=== PATIENT | male | born 1980 | race Caucasian/White ===

== ENCOUNTER 2017-05-10 16:47 | Emergency (ER) | payer OTHER ==
[~2017-05-10] VITALS: Ht 172.7 cm; Wt 88.6 kg
[2017-05-10] MEDS ORDERED: NORCO, ANEXSIA 5/325MG TABLET (HYDROcodone/ACETAMINOPHEN) PO ONE (17:15)
[2017-05-10] MEDS ORDERED: LIDOCAINE 1% MDV 20ML VIAL SC ONE (17:15)
[2017-05-10] MEDS ORDERED: LIDOCAINE 1% SDV INJ 30 ML VIAL SC SCH (17:15)
[2017-05-10] MEDS ORDERED: LIDOCAINE 1% MDV 20ML VIAL As Ordered ONE (17:17)
[2017-05-10] MEDS ORDERED: NEOSPORIN OINT 0.9 GM PKT (FLOOR STOCK) As Ordered ONE (17:22)
[2017-05-10] MEDS ORDERED: AUGM875T28 PO (17:51)
[2017-05-10 17:58] VITALS: BP 145/90
[2017-05-10] MEDS ORDERED: AUGMENTIN 875 MG TAB PO ONE (18:00)
--- NOTE | 2017-05-11 02:23 | REP ---
Clinical: Laceration. Foreign body. Technique: AP and lateral views of the left knee. Findings: No acute fracture dislocation. No obvious subcutaneous emphysema or radiodense foreign body appreciated. Impression: No obvious radiodense foreign body. Signed by Jason Gordon MD 05/11/2017 02:14 A
== END 2017-05-10 18:00 | disposition home or self-care (01) ==
LOC: M ED 16:47
DX: S81.012A Laceration without foreign body, left knee, initial encounter (principal); W29.3XXA Contact with powered garden and outdoor hand tools and machinery, initial encounter; Y92.410 Unspecified street and highway as the place of occurrence of the external cause; Y93.H9 Activity, other involving exterior property and land maintenance, building and construction; Y99.9 Unspecified external cause status

== ENCOUNTER 2018-06-13 18:11 | Emergency (ER) | payer OTHER ==
[2018-06-13] MEDS: LIDOCAINE 1% MDV 20ML VIAL SC (20:00)
[2018-06-13] MEDS: ADACEL/BOOSTRIX VACCINE (DIPHTH/PERTUSS/ACELL/TETANUS)0.5ML SYR (90715) IM (20:50)
== END 2018-06-13 21:05 | disposition home or self-care (01) ==
LOC: M ED 18:11
DX: S51.812A Laceration without foreign body of left forearm, initial encounter (principal); W29.8XXA Contact with other powered hand tools and household machinery, initial encounter
CPT/HCPCS: 90715

== ENCOUNTER → 2021-04-27 | Outpatient (CLI) | payer OTHER ==
[~2021-04-27] MED LIST: AUGM875T28 PO
== END ==
LOC: M LABSMTC 11:03
PROVIDERS: ATTEND Anesthesiology
DX: Z01.812 Encounter for preprocedural laboratory examination (principal); Z11.52 Encounter for screening for COVID-19

== ENCOUNTER 2021-05-02 10:24 | Day surgery (SDC) | payer OTHER ==
[~2021-05-02] VITALS: Ht 175.3 cm; Wt 78.8 kg
[~2021-05-02 10:24] MED LIST changes: +ACETAMINOPHEN 1000MG 100ML IV BTL (OFIRMEV) (J0131 PER 10MG) As Ordered ONE; +KETOROLAC 60MG 2ML VIAL As Ordered ONE; +LIDOCAINE 2% 100MG/5ML SDV (FOR ANES.) As Ordered ONE; +MIDAZOLAM INJ 2MG/2ML VIAL (J2250 PER 1MG) As Ordered ONE; +ONDANSETRON 4MG/2ML VIAL As Ordered ONE; +ROCURONIUM BROMIDE 50 MG/5 ML VIAL As Ordered ONE; +SUGAMMADEX SODIUM 500 MG/5 ML VIAL (BRIDION) As Ordered ONE; +dexameTHASONE 4 MG/ML 1ML VIAL (J1100 PER 1MG) As Ordered ONE; +fentaNYL 100 MCG/2 ML INJECTION (J3010) As Ordered ONE; +propofoL 200 MG/20 ML VIAL As Ordered ONE
[2021-05-02] MEDS ORDERED: BUPIVACAINE HCL 0.25% 30ML VIAL As Ordered ONE (12:04)
[2021-05-02] MEDS ORDERED: LR 1,000 ML IV SCH ×2 (12:25→16:10)
[2021-05-02] MEDS ORDERED: fentaNYL 100 MCG/2 ML INJECTION (J3010) As Ordered ONE ×2 (13:17→14:17)
[2021-05-02] MEDS ORDERED: ROCURONIUM BROMIDE 50 MG/5 ML VIAL As Ordered ONE (14:19)
[2021-05-02] MEDS ORDERED: ONDANSETRON 4MG/2ML VIAL IV PRN (16:10)
[2021-05-02] MEDS ORDERED: METOCLOPRAMIDE INJ 10MG/2ML VIAL (J2765 PER 1) IV PRN (16:10)
[2021-05-02] MEDS ORDERED: PERCOCET 5MG/325MG TAB PO PRN (16:10)
[2021-05-02] MEDS ORDERED: fentaNYL 100 MCG/2 ML INJECTION (J3010) IV PRN (16:10)
[2021-05-02] MEDS ORDERED: ACETAMINOPHEN TAB 650MG DOSE (2X325MG) PO PRN (16:25)
[2021-05-02] MEDS ORDERED: IBUPROFEN 600MG TAB PO PRN (16:25)
[2021-05-02] MEDS ORDERED: NORCO, ANEXSIA 5/325MG TABLET (HYDROcodone/ACETAMINOPHEN) PO PRN (16:30)
[2021-05-02 17:20] VITALS: BP 125/68
[2021-05-02] MEDS ORDERED: HYDR-3715 PO (17:38)
--- NOTE | 2021-05-04 17:30 | RO ---
OPERATIVE NOTE DATE OF OPERATION: 05/02/2021 PREOPERATIVE DIAGNOSIS: Bilateral inguinal hernias. POSTOPERATIVE DIAGNOSIS: Bilateral inguinal hernias. PROCEDURE PERFORMED: Robotic-assisted laparoscopic repair of bilateral inguinal hernias with mesh. The mesh utilized on the right was a [employer]ien ProGrip, reference code [id number] and lot #[id number] and the mesh utilized on the left was [employer]ien ProGrip, reference code [id number] and lot #[id number]. SURGEON: Idris Jolly MD GEODETIC ADVISOR: None. 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 He has noted the development of a right inguinal hernia over time which has increased somewhat and become uncomfortable. He was noted on exam to also have a small bulge on the left and he is now repair of bilateral inguinal hernias. OPERATIVE PROCEDURE: The patient was brought to the operating room and placed on the table in a supine position. He was placed under general endotracheal anesthesia. The patient's abdomen was prepped and draped in a sterile fashion. 1/4% Marcaine was infiltrated at each of the trocar sites as needed. A short transverse incision was made several cm above the umbilicus along the midline. A Veress needle was inserted and after a positive hanging drop test, the abdomen was inflated without difficulty. An 8 mm port was placed over the 5 mm scope and advanced through the abdominal wall. The laparoscope was placed. Initial inspection showed no evidence of Veress needle or trocar injury. The liver and visualized portions of the stomach and bowel appeared normal. Two additional ports were placed, one in the right upper quadrant and one in the left upper quadrant in approximately the same level as the first site. The patient was then tilted to a 15 degree Trendelenburg position. The patient cart of the da Dale XI robot was brought into position and the endoscope arm was docked to the supraumbilical site. Targeting took place in the pelvis. The additional robotic arms were then docked. A cauterizing scissor was placed on the right and a fenestrated bipolar on the left. I then moved to the control to proceed with the operation. Initial inspection showed a definite indirect inguinal hernia sac on the right-hand side. On the left, there were some adhesions of the sigmoid colon to the area of the inguinal floor. There was not a definite indirect hernia sac identified. I elected to proceed with repair on the right first. A peritoneal incision was made beginning at the edge of the medial umbilical ligament and extending laterally and then inferiorly toward the anterior-superior iliac spine. The peritoneal flap was developed medially down to the area of El's ligament. The femoral canal was identified. The lateral aspect of the flap was then developed followed by freeing of the hernia sac and reducing this into the abdomen. The sac was carefully dissected away from the other cord structures completely. After the flap had been adequately raised and the appropriate space created in the peritoneal space, the mesh was inserted. This was placed into the preperitoneal space and then unfolded. The adherent side of the mesh was pressed gently into the overlying soft tissues. This nicely covered the internal ring with a wide overlap. The peritoneal flap was then closed with a running suture of absorbable 2-0 V-Loc. This was begun laterally and carried to the medial umbilical ligament. Attention was then turned to the right. I elected to proceed even though there was not a definite indirect sac identified. A similar peritoneal flap was developed on the left. The dissection was carried down medially to expose El's ligament and the femoral canal was noted with no evidence of a femoral hernia. There was no indirect sac. There was a small amount of preperitoneal fat just inside the internal ring. The internal ring also was fairly open similar to what was noted on the right. Once the preperitoneal space had been adequately prepared, the mesh was obtained and then inserted into the preperitoneal space. This was centered over the internal ring and unfolded. The adherent side was pressed into the overlying soft tissues. I then began closure of the peritoneal flap laterally again using an absorbable 2-0 V-Loc. As the closure was continued, the pressure within the abdomen was reduced first to 10 and then to 8 mmHg. The patient was also gradually leveled to first 5 degrees of Trendelenburg and ultimately to 5 degrees of reverse Trendelenburg to try to promote return of gas from the preperitoneal spaces. The peritoneal flap was completely closed. The patient tolerated the procedure well. The robotic instruments were removed and the patient cart was undocked and withdrawn. I returned to the patient's side. The abdomen was deflated and the trocars were all removed. The incisions were all closed with buried sutures of 4-0 Vicryl and Steri-Strips. Light dressings were applied. The patient tolerated the procedure without apparent complication. He was awakened in the operating room, extubated and moved to the recovery room in stable condition.
== END 2021-05-02 17:20 | disposition home or self-care (01) ==
LOC: M SDC 10:24
PROVIDERS: ATTEND Surgery
DX: K40.20 Bilateral inguinal hernia, without obstruction or gangrene, not specified as recurrent (principal); J30.1 Allergic rhinitis due to pollen
CPT/HCPCS: 49650; C1781; J0131; J1100; J1885; J2250; J2405; J3010; S2900

== ENCOUNTER → 2023-04-06 | Outpatient (CLI) | payer OTHER ==
[~2023-04-06] MED LIST changes: -ACETAMINOPHEN 1000MG 100ML IV BTL (OFIRMEV) (J0131 PER 10MG) As Ordered ONE; +HYDR-3715 PO; -KETOROLAC 60MG 2ML VIAL As Ordered ONE; -LIDOCAINE 2% 100MG/5ML SDV (FOR ANES.) As Ordered ONE; -MIDAZOLAM INJ 2MG/2ML VIAL (J2250 PER 1MG) As Ordered ONE; -ONDANSETRON 4MG/2ML VIAL As Ordered ONE; -ROCURONIUM BROMIDE 50 MG/5 ML VIAL As Ordered ONE; -SUGAMMADEX SODIUM 500 MG/5 ML VIAL (BRIDION) As Ordered ONE; -dexameTHASONE 4 MG/ML 1ML VIAL (J1100 PER 1MG) As Ordered ONE; -fentaNYL 100 MCG/2 ML INJECTION (J3010) As Ordered ONE; -propofoL 200 MG/20 ML VIAL As Ordered ONE
== END ==
LOC: M PLAIMG 08:13
PROVIDERS: ATTEND Orthopaedic Surgery
DX: M75.52 Bursitis of left shoulder (principal); M24.812 Other specific joint derangements of left shoulder, not elsewhere classified; M67.814 Other specified disorders of tendon, left shoulder; M25.412 Effusion, left shoulder; M75.22 Bicipital tendinitis, left shoulder